=== PATIENT | female | born 1980 | race Caucasian/White ===

== ENCOUNTER 2024-11-08 15:58 | Emergency (ER) | payer OTHER, SELFPAY ==
--- OUTSIDE RECORDS SUMMARY | 2006-12-20 19:00 | XMS_ITS | Continuity of Care Document ---
Author Organization [facility] Address [address] [place] [address] Phone Care Team Providers Care Senior Radiation Therapist Name Role Phone Unavailable Unavailable Unavailable Procedures Procedure Date Resin one surface-anterior Periapical first film Periapical ea add Limit oral eval problem focused 007 Advance Directives Directive Yes / No Effective Date File Name No Information Encounters Encounter Description Practice Location Reason(s) For Visit Diagnoses Date Provider Providers Copied on Encounter [facility] , [address], [place], [place], [id number], [place] tel:[phone] [id number] [place] [facility] 200 7 No Information Family History Family Member Type Diagnosis Age At Onset No Information Payers Payer name Insurance type Covered green party ID Authoriza tion(s) No Information Social History Type Description Quantity Date Captured Comments Sex Female Smoking Status No Information Chief Complaint And Reason For Visit No Information Reason For Referral Reason For Referral No Information History Of Present Illness Encounter Date Complaint History Of Prese nt Illness No Information Functional Status Date Functional Assessmen t No Information Instructions Date Instruction Additional Infor mation No Information Assessments Type Assessment Date No Information Patient Care Teams Name Effective Dates (start - stop) Status Members No Information
[2024-11-08] VITALS (40 sets, daily range): BP systolic 62–118; BP diastolic 47–80; PULSE 65–112; RESP 17–28; TEMP 36.6–37.8; O2SAT 90–96
--- NOTE | ~2024-11-08 | CT_ITS ---
EXAMINATION: CTA chest PE abdomen pel DATE: 11/08/2024 21:46 INDICATION: Shortness of breath. TECHNIQUE: Computed tomography angiography (CTA) of the chest was performed with 100 mL Omnipaque-350 intravenous contrast timed to evaluate the pulmonary arteries. Coronal maximum intensity projection 3D-reconstructions were created by the technologist. Computed tomography (CT) of the abdomen and pelvis was performed with intravenous contrast. Automated exposure control and iterative reconstruction technique were employed. The dose-length product was 700.07 mGy-cm. COMPARISON: None. FINDINGS: CTA chest: The lungs demonstrate mild atelectasis. There is a 6.6 x 5.4 cm mass in left lung upper lobe with air bronchograms. There are small nodules in left upper lobe. No pleural effusion. Cardiomegaly is noted. No pericardial effusion. The central pulmonary arteries are enlarged, consistent with pulmonary arterial hypertension. There is no pulmonary embolus. There is mild thoracic spondylosis. CT abdomen and pelvis: The liver, gallbladder, spleen, pancreas, adrenal glands, and kidneys are normal. There is an intrauterine device in expected position. There are no dilated loops of bowel. The appendix is normal. There are no pathologically enlarged lymph nodes. There is physiologic fluid in the pelvis. There is mild lumbar spondylosis. IMPRESSION: 1. Mass and nodules in left lung upper lobe, consistent with pneumonia. Follow- up radiographs are recommended in a few weeks to confirm resolution and exclude malignancy. 2. Pulmonary arterial hypertension. Reviewed, dictated and finalized at location E.
--- NOTE | ~2024-11-08 | XR_ITS ---
Examination: XR chest 2V Clinical History: cough and congestion Comparison: None Technique: PA and Lateral Findings: Heart size normal. Enlarged pulmonary arteries. Small patchy opacity left upper lobe medially. No acute bony abnormality. IMPRESSION: 1. Small left lower lobe pneumonia. Recommend follow-up x-rays after treatment. 2. Severe pulmonary arterial hypertension. Reviewed, dictated and finalized at location R. IMPRESSION: 1. Small left lower lobe pneumonia. Recommend follow-up x-rays after treatment . 2. Severe pulmonary arterial hypertension.
--- NOTE | ~2024-11-08 | XR_ITS ---
XR chest port-a-cath/central 11/08/2024 21:25 Indication: Shortness of breath Procedure: Shortness of breath. Tachycardia. Comparison: AP portable chest Findings: Borderline heart size. Enlarged pulmonary arteries. Left subclavian central line ascends into the internal jugular vein. Recommend repositioning as clinically indicated. No focal pneumonia. No pleural effusion or pneumothorax. Impression: 1: Enlarged central pulmonary arteries consistent with pulmonary hypertension. 2: Left-sided central line tip in the internal jugular vein. Reviewed, dictated and finalized at location B. Impression: 1: Enlarged central pulmonary arteries consistent with pulmonary hypertension. 2: Left-sided central line tip in the internal jugular vein.
--- OUTSIDE RECORDS SUMMARY | 2024-11-08 16:01 | XMS_ITS | Clinical Summary ---
Author Organization [facility] Address [address] [place] [id number] Care Team Providers Care Feather Mixer Name Role Phone Unavailable Primary Care Provider Unavailabl e Social History Tobacco Use Types Packs/Day Years Used Date Smoking Tobacco: Never Assessed Comments Unknown Sex and Gender Information Value Date Recorded Sex Assigned at Not on file Legal Sex Female 6:51 PM CDT Gender Identity Not on file Sexual Orientation Not on file Plan of Treatment Health Maintenance Due Date Last Done Comments Cervical Cancer Screening Pa p Smear (Age 30 to 64) Every 3 Years 1980 Annual Physical 12/17/1983 Hepatitis C 1998 DTaP, Tdap and Td Vaccines ( 1 - Tdap) 12/17/1999 Hepatitis B Vaccines (1 of 3 - 19+ 3-dose series) 12/17/1999 HPV Vaccines (1 - 3-dose SCD M series) 12/17/2007 Cervical Cancer Screening Pa p with HPV Testing (Age 30 to 64) Every 5 Years 2010 Cervical Cancer Screening with HPV 2010 Mammogram Screening 2020 COVID-19 Vaccine ( - 2023-2 5 season) 2024 Meningococcal B Vaccine Aged Out No l onger eligible based on patient's age to complete this topic Meningococcal Vaccine Aged Out No torsten fredy eligible based on patient's age to complete this topic Pneumococcal Vaccine: Pediat rics (0 to 5 Years) and At-Risk Patients (6 to 49 Years) Aged Out No longer eligible b ased on patient's age to complete this topic RSV Immunizations Under 20 Months Aged Out No longer eligible based on patient's age to complete this topic
--- NOTE | 2024-11-08 17:33 | PC.NURSE ---
Pt states she has a rug scratcher at [facility] for pulmonary hypertension, and ASD.
--- NOTE | 2024-11-08 17:58 | ECG_ITS ---
Test Date: 2024-11-08 18:24:27 Measurements Intervals [place] Rate: 97 P: 34 NH: 128 QRS: 115 QRSD: 109 T: 55 QT: 438 QTc: 558 Interpretive Statements SINUS RHYTHM RIGHT AXIS DEVIATION INCOMPLETE RIGHT BUNDLE BRANCH BLOCK CANNOT R/O SEPTAL INFARCT, AGE INDETERMINATE ST-T WAVE ABNORMALITY IN ANTEROLAT/INF LEADS- CONSIDER ISCHEMIA ABNORMAL ECG No previous ECG available for comparison Electronically Signed On 11-08-2024 19:28:48 CDT by Camilo Heath D.O.
--- NOTE | 2024-11-08 17:59 | ED_ITS ---
HPI - General Adult General Chief complaint: Unspecified <Jovana Corrales APRN - Last Filed: 11/09/24 03:36> Stated complaint: Fever <Jovana Corrales APRN - Last Filed: 11/09/24 03:36> Time Seen by Provider: 11/08/24 17:28 <Jovana Corrales APRN - Last Filed: 11/09/24 03:36> History of Present Illness HPI narrative: Patient is a 43-year-old female presents to the ER wounds a fever for 3 days. She endorses a T-max of 103?. Patient reports she has had diarrhea, nausea, chest pain, back pain, cough, and congestion. She also endorses history of pulmonary hypertension and an ASD. Patient reports she recently had an echocardiogram the indicates she has fluid in her heart. She reports she was given prescription for Lasix but has not started taking it. Patient denies any urinary symptoms, abdominal pain, or lower extremity swelling. <Jovana Corrales APRN - Last Filed: 11/09/24 03:36> Related Data Allergies/adverse reactions: Allergies Allergy/AdvReac Type Severity Reaction Status Date / Time linezolid (From Zyvox) Allergy Mild Rash Verified 11/09/24 08:03 ciprofloxacin (From Cipro) Allergy Rash Verified 11/08/24 16:12 <Jovana Corrales APRN - Last Filed: 11/09/24 03:36> Review of Systems 2 Review of Systems: All systems reviewed & are unremarkable except as noted in HPI and below <Jovana Corrales APRN - Last Filed: 11/09/24 03:36> Exam 2 Narrative: GENERAL: Ill appearing, well-nourished, non-toxic, in mild acute distress. HEAD: Normocephalic, atraumatic. NECK: Supple. No adenopathy, no masses. RESPIRATORY: Airway patent, respirations nonlabored. Clear to auscultation bilaterally, no rales, rhonchi, wheezing. CARDIOVASCULAR: Tachycardia with murmur. Peripheral pulses 2+ and equal bilaterally. ABDOMINAL: Soft, nontender, nondistended, no hepatosplenomegaly. Normoactive BS. MUSCULOSKELETAL: Moves all extremities. Strength/ROM intact without gross deformities. SKIN: Warm, dry, normal color. No rashes. NEURO: A&O X3. Speech clear. Cranial nerves II-XII intact. No ataxic movements. PSYCHIATRIC: Appropriate mood and affect. Normal interaction. <Jovana Corrales APRN - Last Filed: 11/09/24 03:36> Course Course Emergency Course: Spoke with Dr. Lilibeth Montoya at [facility] for an update at 7:49am. Discussed patient's presentation, work up, and current needs in terms of oxygenation and pressors. He Accepts admission to the CCU (rather than the initial MICU designation) and will consult the necessary teams. Patient is still pending a bed but there is optimistically more availability with this designation. Paperwork updated to reflect this change and RN notified. I was informed that patient received a bed and EMS transportation was being arranged. She has otherwise been hemodynamically stable though remains in serious condition. <Melisa Bess MD - Last Filed: 11/09/24 18:15> CREDIT REPRESENTATIVE/PA Physician Supervision When patient had become hypotensive and hypoxic, I started to discuss patient with LINCOLN Corrales. Went to bedside to assess patient. She reports that she has had fevers for 3 days and feel short of breath. Her diagnosis of pulmonary hypertension occurred approximately 10 years ago, believed to be idiopathic has no other etiology has been identified. Has been on tildenafil for years; recent Echo for which she was advised a few days ago to start Lasix (unknown dose/frequency) but was unable to as she was not feeling well. Unable to pull up echo on her [facility] patient portal due to WiFi issues. Patient is receiving 2nd L of fluids. Using POCUS (point of care ultrasound ) at bedside along with Dr Rodriguez, her RV is very enlarged, D sign with bowing into LV is prominent. IVC is appropriate size and shows respiratory variation. She has been uptitrated from NC to NRB, sats are hovering around 90%+, occcasionally dipping below this but not sustained. I did advise blood cultures and broadening antibiotics from ceftriaxone and azithromycin to include vancomycin given how serious her condition is. Peripheral vasopressors are initiated in the form of norepi. Central line placed by Dr Rodriguez (see procedure note). Discussed the various strategies and considerations of pulmonary hypertension and critical care management of PHTN patients with CREDIT REPRESENTATIVE who also discusses patient independently with [place] [facility] health consultant and [facility] [place] hospitalist, the latter waiting until CT completed. CREDIT REPRESENTATIVE discussed patient with behavioral medical director Dr Gonzalez who recommended she be transferred to [facility] rural health consultant and specialized care there. Patient accepted to MICU after CREDIT REPRESENTATIVE conversation. Discussed with RT switching to vapotherm/aerovent/etc though there was miscommunication and that change was not made for several hours after discussion. Patient had been maintaining saturations despite this on NRB. Patient had been uptitrated from 5 to 10 to 15 of norepi. I did advise at about 6:45am that could try to downtitrate norepi given multiple reassuring MAPs howevr when back down to 10 her MAPs are not sustained >65mmHg so uptitrated back to 12. ==== Critical Care: 1 or more vital organ systems impaired with a high probability of imminent or life-threatening deterioration in the patient's condition requiring frequent personal assessment and manipulation of the patient's condition. This included time spent evaluating the patient, speaking with EMS pre-hospital personnel and family, reviewing/interpreting laboratory/imaging studies, discussing the case with consultants or admitting teams, retrieving data and reviewing charts, monitoring for decompensation, documenting the visit, and performing bundled procedures exclusive of separately billed procedures. CRITICAL CARE: YES TIME: 45 minutes <Melisa Bess MD - Last Filed: 11/09/24 18:15> Vital Signs Vital signs: Vital Signs Temperature 100.1 F H 11/08/24 16:08 Pulse Rate 112 H 11/08/24 16:08 Respiratory Rate 18 11/08/24 16:08 Blood Pressure 118/74 11/08/24 16:08 Pulse Oximetry 92 11/08/24 16:08 Temperature 97.8 F 11/08/24 19:17 Pulse Rate 60 11/09/24 10:31 Respiratory Rate 20 11/09/24 10:31 Blood Pressure 103/62 11/09/24 10:31 Pulse Oximetry 96 11/09/24 10:31 Oxygen Delivery Nasal Cannula 11/09/24 05:40 Oxygen Flow Rate 3 11/09/24 05:40 <Jovana Corrales APRN - Last Filed: 11/09/24 03:36> Vital Signs Temperature 100.1 F H 11/08/24 16:08 Pulse Rate 112 H 11/08/24 16:08 Respiratory Rate 18 11/08/24 16:08 Blood Pressure 118/74 11/08/24 16:08 Pulse Oximetry 92 11/08/24 16:08 Temperature 97.8 F 11/08/24 19:17 Pulse Rate 60 11/09/24 10:31 Respiratory Rate 20 11/09/24 10:31 Blood Pressure 103/62 11/09/24 10:31 Pulse Oximetry 96 11/09/24 10:31 Oxygen Delivery Nasal Cannula 11/09/24 05:40 Oxygen Flow Rate 3 11/09/24 05:40 <Joseph Rodriguez MD - Last Filed: 11/08/24 21:20> Vital Signs Temperature 100.1 F H 11/08/24 16:08 Pulse Rate 112 H 11/08/24 16:08 Respiratory Rate 18 11/08/24 16:08 Blood Pressure 118/74 11/08/24 16:08 Pulse Oximetry 92 11/08/24 16:08 Temperature 97.8 F 11/08/24 19:17 Pulse Rate 60 11/09/24 10:31 Respiratory Rate 20 11/09/24 10:31 Blood Pressure 103/62 11/09/24 10:31 Pulse Oximetry 96 11/09/24 10:31 Oxygen Delivery Nasal Cannula 11/09/24 05:40 Oxygen Flow Rate 3 11/09/24 05:40 <Melisa Bess MD - Last Filed: 11/09/24 18:15> Procedures Central Line Placement Left SC: Central Line Date: 11/08/24 <Joseph Rodriguez MD - Last Filed: 11/08/24 21:20> Discussed w/ the patient/family/POA,the placement of a central venous catheter, including its clinical necessity/indication & associated potential risks, benifits and alternatives.: Yes <Joseph Rodriguez MD - Last Filed: 11/08/24 21:20> The patient/family/POA understand(s) and acknowledge(s) the need to proceed with central venous catheter insertion as an important element of the patient's clinical management.: Yes <Joseph Rodriguez MD - Last Filed: 11/08/24 21:20> Time Out Performed: Yes <Joseph Rodriguez MD - Last Filed: 11/08/24 21:20> Patient Placed on Monitor/Pulse Ox: Yes <Joseph Rodriguez MD - Last Filed: 11/08/24 21:20> Max. Sterile Barrier Technique: Caps and large sterile sheet <Joseph Rodriguez MD - Last Filed: 11/08/24 21:20> Central Line Prep: 2% chlorhexidine scrub and sterile drapes applied <Joseph Rodriguez MD - Last Filed: 11/08/24 21:20> Technique: sterile prep/drape <Joseph Rodriguez MD - Last Filed: 11/08/24 21:20> Local Anesthetic: lidocaine 1% and lidocaine 2% <Joseph Rodriguez MD - Last Filed: 11/08/24 21:20> Amount of anesthesia used (mL): 5 <Joseph Rodriguez MD - Last Filed: 11/08/24 21:20> Ultrasound Used for Placement: No <Joseph Rodriguez MD - Last Filed: 11/08/24 21:20> Central Line Lumen Inserted: triple <Joseph Rodriguez MD - Last Filed: 11/08/24 21:20> Post Procedure: sutured in place, good blood return, all ports aspirated, flushed, capped and sterile dressing applied <Joseph Rodriguez MD - Last Filed: 11/08/24 21:20> Post Procedure X-Ray: other (Catheter doubled back on itself. Suspect this is due to previous port placement in the right chest. Catheter was removed pressure was held for 5 minutes. No significant bleeding.) <Joseph Rodriguez MD - Last Filed: 11/08/24 21:20> Patient Tolerated Procedure: other <Joseph Rodriguez MD - Last Filed: 11/08/24 21:20> Complications: catheter malposition <Joseph Rodriguez MD - Last Filed: 11/08/24 21:20> Right Femoral: Central Line Date: 11/08/24 <Joseph Rodriguez MD - Last Filed: 11/08/24 21:20> Discussed w/ the patient/family/POA,the placement of a central venous catheter, including its clinical necessity/indication & associated potential risks, benifits and alternatives.: Yes <Joseph Rodriguez MD - Last Filed: 11/08/24 21:20> The patient/family/POA understand(s) and acknowledge(s) the need to proceed with central venous catheter insertion as an important element of the patient's clinical management.: Yes <Joseph Rodriguez MD - Last Filed: 11/08/24 21:20> Time Out Performed: Yes <Joseph Rodriguez MD - Last Filed: 11/08/24 21:20> Patient Placed on Monitor/Pulse Ox: Yes <Joseph Rodriguez MD - Last Filed: 11/08/24 21:20> Max. Sterile Barrier Technique: Caps, large sterile sheet and hand hygiene <Joseph Rodriguez MD - Last Filed: 11/08/24 21:20> Central Line Prep: 2% chlorhexidine scrub and sterile drapes applied <Joseph Rodriguez MD - Last Filed: 11/08/24 21:20> Technique: US-Guided <Joseph Rodriguez MD - Last Filed: 11/08/24 21:20> Local Anesthetic: lidocaine 1% <Joseph Rodriguez MD - Last Filed: 11/08/24 21:20> Amount of anesthesia used (mL): 5 <Joseph Rodriguez MD - Last Filed: 11/08/24 21:20> Ultrasound Used for Placement: Yes <Joseph Rodriguez MD - Last Filed: 11/08/24 21:20> Central Line Lumen Inserted: triple <Joseph Rodriguez MD - Last Filed: 11/08/24 21:20> Post Procedure: sutured in place, good blood return, all ports aspirated, flushed, capped and sterile dressing applied <Joseph Rodriguez MD - Last Filed: 11/08/24 21:20> Patient Tolerated Procedure: well <Joseph Rodriguez MD - Last Filed: 11/08/24 21:20> Complications: none <Joseph Rodriguez MD - Last Filed: 11/08/24 21:20> Medical Decision Making [facility] Narrative Medical decision making narrative: Patient is a 43-year-old female presents to the ER wounds a fever for 3 days. She endorses a T-max of 103?. Patient reports she has had diarrhea, nausea, chest pain, back pain, cough, and congestion. She also endorses history of pulmonary hypertension and an ASD. Patient reports she recently had an echocardiogram the indicates she has fluid in her heart. She reports she was given prescription for Lasix but has not started taking it. Patient denies any urinary symptoms, abdominal pain, or lower extremity swelling. Labs Ordered: CBC, CMP, proBNP, lactic acid, CRP, blood cultures, troponin, UA, D-dimer, PTT, INR, lipase Imaging Ordered: chest x-ray, CT PE chest/abdomen/pelvis Medications Ordered: 1 L normal saline IV bolus x2, ceftriaxone 1 g IV, azithromycin 500 mg IV, vancomycin 1750 mg IV, potassium chloride IV, Reglan 10 mg IV, Tylenol p.o., Zofran 4 mg IV Results: Patient's CBC indicates a white blood cell count of 19.7, platelet count of 111. Her coags indicate a PT of 16.8, APTT of 37 seconds, and INR of 1.4. Patient's D-dimer was 1.84. Her arterial blood gas indicates an ABG of 7.311, CO2 28.4, O2 of 65, HC03 of 14. Patient's chemistry indicates a sodium of 130, potassium of 3.1, carbon dioxide of 14, BUN of 20, creatinine of 1.06, GFR of 57, glucose 132, and total bili of 1.9. Patient's CRP is 30.7. Her proBNP is 3170. Patient's initial troponin was 0.017, and her 3 hour troponin was 0.013. Her urinalysis indicates 3+ protein, trace glucose, trace ketones, 3+ blood, and 1+ bilirubin. Patient's nasal MRSA was not detected. Her toxicology was negative for all substances. Patient's respiratory panel is negative for influenza, RSV, and COVID. Pt's chest x-ray indicates 1. Small left lower lobe pneumonia. Recommend follow-up x-rays after treatment. 2. Severe pulmonary arterial hypertension. Diagnosis: Pneumonia, pulmonary hypertension CRITICAL CARE ADDENDUM: Indication: resp failure, pulmonary hypertension, pneumonia Time type: intermittent I provided a total of 75 minutes of critical care excluding separately billable procedures. This includes time w/ initial bedside evaluation, reviewing old records, review of testing done while under my care, discussion w/ the family, nurses, wardrobe image consultant and guiding the patient?s care while in the emergency department. Approximate time distribution: 10 minutes ? Initial evaluation, d/w involved parties, attempting to gather old records. 10 minutes ? Documenting medical record 20 minutes ? Review of results (EKGs, labs, imaging) 20 minutes ? Serial repeat bedside evaluation 15 minutes ? Discussing case with multiple providers Please see main chart for details. Excludes separately billable procedures. Consults: 2044- Spoke with Dr. Oconnell, pulmonology, who advised to treat this as septic shock from pt's pneumonia. He reports he doesn't use Tadalafil (pt's home medication), so he had no further advice on her pulmonary medications. MDM: 1944- Pt placed on 2L NC to keep oxygen saturation above 92%. 1999- Pt's blood pressure started to drop (70s/40s). Her oxygen saturations dropped into the high 80s and pt's NC was turned up to 4L NC. Eventually, pt was placed on a non-rebreather with 15L. The ER physician placed a central line and a norepinephrine was started. The norepinephrine drip was turned up to 10mcg/minute to keep her blood pressure in the 100s/60s. 2199- Spoke with Dr. Gonzalez, behavioral medical director, who reports pt should be transferred to the facility where her rural health consultant is located. 2229- Spoke with transfer line who will work on coordinating pt's transfer. 2329- Pt was accepted in the MICU at [facility]. The accepting physician is Dr. Peres. 2399- Spoke with MICU fellow, Dr. Platt, who advised adding epinephrine onto pt's regime if she becomes hemodynamically unstable. He also advised placing pt on an Optiflow if she starts requiring more oxygen. 329- Care signed out to Dr. Bess pending an available bed in the MICU at [facility]. <Jovana Corrales, AZAEL - Last Filed: 11/09/24 03:36> Differential Diagnosis Differential Diagnosis: Community acquired pneumonia, pulmonary hypertension, pulmonary embolism, congestive heart failure <Jovana Corrales APRN - Last Filed: 11/09/24 03:36> Vital Signs Vital Signs: Vital Signs Temperature 100.1 F H 11/08/24 16:08 Pulse Rate 112 H 11/08/24 16:08 Respiratory Rate 18 11/08/24 16:08 Blood Pressure 118/74 11/08/24 16:08 Pulse Oximetry 92 11/08/24 16:08 Temperature 97.8 F 11/08/24 19:17 Pulse Rate 60 11/09/24 10:31 Respiratory Rate 20 11/09/24 10:31 Blood Pressure 103/62 11/09/24 10:31 Pulse Oximetry 96 11/09/24 10:31 Oxygen Delivery Nasal Cannula 11/09/24 05:40 Oxygen Flow Rate 3 11/09/24 05:40 <Jovana Corrales, [employer] SUPERVISOR - Last Filed: 11/09/24 03:36> Vital Signs Temperature 100.1 F H 11/08/24 16:08 Pulse Rate 112 H 11/08/24 16:08 Respiratory Rate 18 11/08/24 16:08 Blood Pressure 118/74 11/08/24 16:08 Pulse Oximetry 92 11/08/24 16:08 Temperature 97.8 F 11/08/24 19:17 Pulse Rate 60 11/09/24 10:31 Respiratory Rate 20 11/09/24 10:31 Blood Pressure 103/62 11/09/24 10:31 Pulse Oximetry 96 11/09/24 10:31 Oxygen Delivery Nasal Cannula 11/09/24 05:40 Oxygen Flow Rate 3 11/09/24 05:40 <Joseph Rodriguez MD - Last Filed: 11/08/24 21:20> Vital Signs Temperature 100.1 F H 11/08/24 16:08 Pulse Rate 112 H 11/08/24 16:08 Respiratory Rate 18 11/08/24 16:08 Blood Pressure 118/74 11/08/24 16:08 Pulse Oximetry 92 11/08/24 16:08 Temperature 97.8 F 11/08/24 19:17 Pulse Rate 60 11/09/24 10:31 Respiratory Rate 20 11/09/24 10:31 Blood Pressure 103/62 11/09/24 10:31 Pulse Oximetry 96 11/09/24 10:31 Oxygen Delivery Nasal Cannula 11/09/24 05:40 Oxygen Flow Rate 3 11/09/24 05:40 <Melisa Bess MD - Last Filed: 11/09/24 18:15> Lab Data Lab results reviewed: Yes I reviewed the patient's lab results. <Jovana Corrales APRN - Last Filed: 11/09/24 03:36> Result diagrams: 11/08/24 18:37 11/09/24 06:16 <Jovana Corrales APRN - Last Filed: 11/09/24 03:36> Labs: Lab Results 11/08/24 11/08/24 11/08/24 Range/Units 18:37 19:09 19:47 WBC 19.7 H (4.5-10.0) K/mm3 RBC 4.70 (4.2-5.4) M/mm3 Hgb 14.5 (12.0-15.0) g/dL Hct 40.9 (37.0-47.0) % MCV 87.0 (80-100) fl MCH 30.9 (26-34) pg MCHC 35.5 (32-36) g/dl RDW 12.9 (11.5-14.5) % Plt Count 111 L (150-375) k/mm3 MPV 9.2 (7.4-10.4) fl Immature Gran % (Auto) 0.7 H (0-0.5) % Neut % (Auto) 88.3 H (45.5-73.1) % Lymph % (Auto) 4.0 L (18.3-44.2) % Caroline % (Auto) 6.7 (2.6-8.5) % Eos % (Auto) 0.1 (0-4.4) % Baso % (Auto) 0.2 (0.2-1.2) % Lymph # (Auto) 0.78 L (0.9-3.2) K/mm3 Caroline # (Auto) 1.3 H (0.1-0.6) K/mm3 Eos # (Auto) 0.0 (0-0.3) K/mm3 Baso # (Auto) 0.0 (0.0-0.1) K/mm3 Abs Immat Gran (auto) 0.13 H (0.00-0.031) K/mm3 Absolute Neuts (auto) 17.4 H (1.3-6.7) K/mm3 Absolute Nucleated RBC 0.000 (0.0-0.012) K/mm3 Nucleated RBC % 0.0 (0.0-0.2) % PT 16.8 H (11.1-14.7) Seconds INR 1.4 APTT 37.0 H (22.3-36.8) Seconds D-Dimer 1.84 H (<0.48) ug/mL Sodium 130 L (137-145) mmol/L Potassium 3.1 L (3.4-5.0) mmol/L Chloride 107 (98-107) mmol/L Carbon Dioxide 14 L (22-30) mmol/L Anion Gap 9 (4-12) mmol/L BUN 20 H (7-17) mg/dL Creatinine 1.06 H (0.7-1.0) mg/dL Estim Creat Clear Calc 59 ml/min Estimated GFR 57 L (59 - ) Glucose 132 H (65-110) mg/dL Lactic Acid 1.3 (0.7-2.0) mmol/L Calcium 8.5 (8.4-10.2) mg/dL Total Bilirubin 1.9 H (0.2-1.3) mg/dL AST 16 (14-36) U/L ALT 14 (6-35) U/L Alkaline Phosphatase 73 (38-126) U/L Troponin I 0.017 (0.000-0.034) ng/mL C-Reactive Protein 30.7 H (<1.0) mg/dL NT-Pro-B Natriuret Pep 3170 H (19.9-100) pg/mL Total Protein 7.3 (6.3-8.2) g/dL Albumin 3.8 (3.5-5.1) g/dL Lipase 152 (23-300) U/L Urine Color Dark yellow (Yellow) Urine Appearance Cloudy H (Clear) Urine pH 5.5 (5.0-9.0) Ur Specific [place] 1.027 (1.001-1.035) Urine Protein 3+ H (Negative) mg/dL Urine Glucose (UA) Trace H (Negative) mg/dL Urine Ketones Trace H (Negative) mg/dL Ur Blood (Man) 3+ H (Negative) Urine Nitrate Negative (Negative) Urine Bilirubin 1+ H (Negative) Urine Urobilinogen 1.0 (<2.0) mg/dL Add Ur Microanalysis Reviewed Leukocyte Esterase Rfl Negative (Negative) AGUSTIN/UL Urine RBC 6-10 H (0-2) /hpf Urine WBC 0-5 (0-3) /hpf Ur Squamous Epith Cells Moderate (Few) /hpf Urine Bacteria 1+ H /hpf Urine Casts >20 Granular Casts Present (None) /lpf WBC Casts Present H (None) /lpf Urine Mucus Present /lpf POC Urine HCG, Qual Negative (Negative) Nasal MRSA (PCR) (NOT DETECTE) Urine Opiates Screen Negative (Negative) Urine Methadone Screen Negative (Negative) Ur Barbiturates Screen Negative (Negative) Ur Phencyclidine Scrn Negative (Negative) Ur Amphetamine Screen Negative (Negative) U Benzodiazepines Scrn Negative (Negative) Urine Cocaine Screen Negative (Negative) U Cannabinoids Screen Negative (Negative) Influenza A (RT-PCR) Negative (Negative) Influenza B (RT-PCR) Negative (Negative) RSV (RT-PCR) Negative (Negative) SARS-CoV-2 RNA (RT-PCR) Negative (Negative) 11/08/24 11/08/24 11/08/24 Range/Units 20:41 22:42 22:50 WBC (4.5-10.0) K/mm3 RBC (4.2-5.4) M/mm3 Hgb (12.0-15.0) g/dL Hct (37.0-47.0) % MCV (80-100) fl MCH (26-34) pg MCHC (32-36) g/dl RDW (11.5-14.5) % Plt Count (150-375) k/mm3 MPV (7.4-10.4) fl Immature Gran % (Auto) (0-0.5) % Neut % (Auto) (45.5-73.1) % Lymph % (Auto) (18.3-44.2) % Caroline % (Auto) (2.6-8.5) % Eos % (Auto) (0-4.4) % Baso % (Auto) (0.2-1.2) % Lymph # (Auto) (0.9-3.2) K/mm3 Caroline # (Auto) (0.1-0.6) K/mm3 Eos # (Auto) (0-0.3) K/mm3 Baso # (Auto) (0.0-0.1) K/mm3 Abs Immat Gran (auto) (0.00-0.031) K/mm3 Absolute Neuts (auto) (1.3-6.7) K/mm3 Absolute Nucleated RBC (0.0-0.012) K/mm3 Nucleated RBC % (0.0-0.2) % PT (11.1-14.7) Seconds INR APTT (22.3-36.8) Seconds D-Dimer (<0.48) ug/mL Sodium (137-145) mmol/L Potassium (3.4-5.0) mmol/L Chloride (98-107) mmol/L Carbon Dioxide (22-30) mmol/L Anion Gap (4-12) mmol/L BUN (7-17) mg/dL Creatinine (0.7-1.0) mg/dL Estim Creat Clear Calc ml/min Estimated GFR (59 - ) Glucose (65-110) mg/dL Lactic Acid (0.7-2.0) mmol/L Calcium (8.4-10.2) mg/dL Total Bilirubin (0.2-1.3) mg/dL AST (14-36) U/L ALT (6-35) U/L Alkaline Phosphatase (38-126) U/L Troponin I 0.014 0.013 (0.000-0.034) ng/mL C-Reactive Protein (<1.0) mg/dL NT-Pro-B Natriuret Pep (19.9-100) pg/mL Total Protein (6.3-8.2) g/dL Albumin (3.5-5.1) g/dL Lipase (23-300) U/L Urine Color (Yellow) Urine Appearance (Clear) Urine pH (5.0-9.0) Ur Specific [place] (1.001-1.035) Urine Protein (Negative) mg/dL Urine Glucose (UA) (Negative) mg/dL Urine Ketones (Negative) mg/dL Ur Blood (Man) (Negative) Urine Nitrate (Negative) Urine Bilirubin (Negative) Urine Urobilinogen (<2.0) mg/dL Add Ur Microanalysis Leukocyte Esterase Rfl (Negative) AGUSTIN/UL Urine RBC (0-2) /hpf Urine WBC (0-3) /hpf Ur Squamous Epith Cells (Few) /hpf Urine Bacteria /hpf Urine Casts Granular Casts (None) /lpf WBC Casts (None) /lpf Urine Mucus /lpf POC Urine HCG, Qual (Negative) Nasal MRSA (PCR) Not detected (NOT DETECTE) Urine Opiates Screen (Negative) Urine Methadone Screen (Negative) Ur Barbiturates Screen (Negative) Ur Phencyclidine Scrn (Negative) Ur Amphetamine Screen (Negative) U Benzodiazepines Scrn (Negative) Urine Cocaine Screen (Negative) U Cannabinoids Screen (Negative) Influenza A (RT-PCR) (Negative) Influenza B (RT-PCR) (Negative) RSV (RT-PCR) (Negative) SARS-CoV-2 RNA (RT-PCR) (Negative) 11/09/24 Range/Units 06:16 WBC (4.5-10.0) K/mm3 RBC (4.2-5.4) M/mm3 Hgb (12.0-15.0) g/dL Hct (37.0-47.0) % MCV (80-100) fl MCH (26-34) pg MCHC (32-36) g/dl RDW (11.5-14.5) % Plt Count (150-375) k/mm3 MPV (7.4-10.4) fl Immature Gran % (Auto) (0-0.5) % Neut % (Auto) (45.5-73.1) % Lymph % (Auto) (18.3-44.2) % Caroline % (Auto) (2.6-8.5) % Eos % (Auto) (0-4.4) % Baso % (Auto) (0.2-1.2) % Lymph # (Auto) (0.9-3.2) K/mm3 Caroline # (Auto) (0.1-0.6) K/mm3 Eos # (Auto) (0-0.3) K/mm3 Baso # (Auto) (0.0-0.1) K/mm3 Abs Immat Gran (auto) (0.00-0.031) K/mm3 Absolute Neuts (auto) (1.3-6.7) K/mm3 Absolute Nucleated RBC (0.0-0.012) K/mm3 Nucleated RBC % (0.0-0.2) % PT (11.1-14.7) Seconds INR APTT (22.3-36.8) Seconds D-Dimer (<0.48) ug/mL Sodium (137-145) mmol/L Potassium (3.4-5.0) mmol/L Chloride (98-107) mmol/L Carbon Dioxide (22-30) mmol/L Anion Gap (4-12) mmol/L BUN (7-17) mg/dL Creatinine 0.94 (0.7-1.0) mg/dL Estim Creat Clear Calc 66 ml/min Estimated GFR > 60 (59 - ) Glucose (65-110) mg/dL Lactic Acid (0.7-2.0) mmol/L Calcium (8.4-10.2) mg/dL Total Bilirubin (0.2-1.3) mg/dL AST (14-36) U/L ALT (6-35) U/L Alkaline Phosphatase (38-126) U/L Troponin I (0.000-0.034) ng/mL C-Reactive Protein (<1.0) mg/dL NT-Pro-B Natriuret Pep (19.9-100) pg/mL Total Protein (6.3-8.2) g/dL Albumin (3.5-5.1) g/dL Lipase (23-300) U/L Urine Color (Yellow) Urine Appearance (Clear) Urine pH (5.0-9.0) Ur Specific [place] (1.001-1.035) Urine Protein (Negative) mg/dL Urine Glucose (UA) (Negative) mg/dL Urine Ketones (Negative) mg/dL Ur Blood (Man) (Negative) Urine Nitrate (Negative) Urine Bilirubin (Negative) Urine Urobilinogen (<2.0) mg/dL Add Ur Microanalysis Leukocyte Esterase Rfl (Negative) AGUSTIN/UL Urine RBC (0-2) /hpf Urine WBC (0-3) /hpf Ur Squamous Epith Cells (Few) /hpf Urine Bacteria /hpf Urine Casts Granular Casts (None) /lpf WBC Casts (None) /lpf Urine Mucus /lpf POC Urine HCG, Qual (Negative) Nasal MRSA (PCR) (NOT DETECTE) Urine Opiates Screen (Negative) Urine Methadone Screen (Negative) Ur Barbiturates Screen (Negative) Ur Phencyclidine Scrn (Negative) Ur Amphetamine Screen (Negative) U Benzodiazepines Scrn (Negative) Urine Cocaine Screen (Negative) U Cannabinoids Screen (Negative) Influenza A (RT-PCR) (Negative) Influenza B (RT-PCR) (Negative) RSV (RT-PCR) (Negative) SARS-CoV-2 RNA (RT-PCR) (Negative) <Jovana Chele Corrales, [employer] - Last Filed: 11/09/24 03:36> Lab Results 11/08/24 11/08/24 11/08/24 Range/Units 18:37 19:09 19:47 WBC 19.7 H (4.5-10.0) K/mm3 RBC 4.70 (4.2-5.4) M/mm3 Hgb 14.5 (12.0-15.0) g/dL Hct 40.9 (37.0-47.0) % MCV 87.0 (80-100) fl MCH 30.9 (26-34) pg MCHC 35.5 (32-36) g/dl RDW 12.9 (11.5-14.5) % Plt Count 111 L (150-375) k/mm3 MPV 9.2 (7.4-10.4) fl Immature Gran % (Auto) 0.7 H (0-0.5) % Neut % (Auto) 88.3 H (45.5-73.1) % Lymph % (Auto) 4.0 L (18.3-44.2) % Caroline % (Auto) 6.7 (2.6-8.5) % Eos % (Auto) 0.1 (0-4.4) % Baso % (Auto) 0.2 (0.2-1.2) % Lymph # (Auto) 0.78 L (0.9-3.2) K/mm3 Caroline # (Auto) 1.3 H (0.1-0.6) K/mm3 Eos # (Auto) 0.0 (0-0.3) K/mm3 Baso # (Auto) 0.0 (0.0-0.1) K/mm3 Abs Immat Gran (auto) 0.13 H (0.00-0.031) K/mm3 Absolute Neuts (auto) 17.4 H (1.3-6.7) K/mm3 Absolute Nucleated RBC 0.000 (0.0-0.012) K/mm3 Nucleated RBC % 0.0 (0.0-0.2) % PT 16.8 H (11.1-14.7) Seconds INR 1.4 APTT 37.0 H (22.3-36.8) Seconds D-Dimer 1.84 H (<0.48) ug/mL Sodium 130 L (137-145) mmol/L Potassium 3.1 L (3.4-5.0) mmol/L Chloride 107 (98-107) mmol/L Carbon Dioxide 14 L (22-30) mmol/L Anion Gap 9 (4-12) mmol/L BUN 20 H (7-17) mg/dL Creatinine 1.06 H (0.7-1.0) mg/dL Estim Creat Clear Calc 59 ml/min Estimated GFR 57 L (59 - ) Glucose 132 H (65-110) mg/dL Lactic Acid 1.3 (0.7-2.0) mmol/L Calcium 8.5 (8.4-10.2) mg/dL Total Bilirubin 1.9 H (0.2-1.3) mg/dL AST 16 (14-36) U/L ALT 14 (6-35) U/L Alkaline Phosphatase 73 (38-126) U/L Troponin I 0.017 (0.000-0.034) ng/mL C-Reactive Protein 30.7 H (<1.0) mg/dL NT-Pro-B Natriuret Pep 3170 H (19.9-100) pg/mL Total Protein 7.3 (6.3-8.2) g/dL Albumin 3.8 (3.5-5.1) g/dL Lipase 152 (23-300) U/L Urine Color Dark yellow (Yellow) Urine Appearance Cloudy H (Clear) Urine pH 5.5 (5.0-9.0) Ur Specific [place] 1.027 (1.001-1.035) Urine Protein 3+ H (Negative) mg/dL Urine Glucose (UA) Trace H (Negative) mg/dL Urine Ketones Trace H (Negative) mg/dL Ur Blood (Man) 3+ H (Negative) Urine Nitrate Negative (Negative) Urine Bilirubin 1+ H (Negative) Urine Urobilinogen 1.0 (<2.0) mg/dL Add Ur Microanalysis Reviewed Leukocyte Esterase Rfl Negative (Negative) AGUSTIN/UL Urine RBC 6-10 H (0-2) /hpf Urine WBC 0-5 (0-3) /hpf Ur Squamous Epith Cells Moderate (Few) /hpf Urine Bacteria 1+ H /hpf Urine Casts >20 Granular Casts Present (None) /lpf WBC Casts Present H (None) /lpf Urine Mucus Present /lpf POC Urine HCG, Qual Negative (Negative) Nasal MRSA (PCR) (NOT DETECTE) Urine Opiates Screen Negative (Negative) Urine Methadone Screen Negative (Negative) Ur Barbiturates Screen Negative (Negative) Ur Phencyclidine Scrn Negative (Negative) Ur Amphetamine Screen Negative (Negative) U Benzodiazepines Scrn Negative (Negative) Urine Cocaine Screen Negative (Negative) U Cannabinoids Screen Negative (Negative) Influenza A (RT-PCR) Negative (Negative) Influenza B (RT-PCR) Negative (Negative) RSV (RT-PCR) Negative (Negative) SARS-CoV-2 RNA (RT-PCR) Negative (Negative) 11/08/24 11/08/24 11/08/24 Range/Units 20:41 22:42 22:50 WBC (4.5-10.0) K/mm3 RBC (4.2-5.4) M/mm3 Hgb (12.0-15.0) g/dL Hct (37.0-47.0) % MCV (80-100) fl MCH (26-34) pg MCHC (32-36) g/dl RDW (11.5-14.5) % Plt Count (150-375) k/mm3 MPV (7.4-10.4) fl Immature Gran % (Auto) (0-0.5) % Neut % (Auto) (45.5-73.1) % Lymph % (Auto) (18.3-44.2) % Caroline % (Auto) (2.6-8.5) % Eos % (Auto) (0-4.4) % Baso % (Auto) (0.2-1.2) % Lymph # (Auto) (0.9-3.2) K/mm3 Caroline # (Auto) (0.1-0.6) K/mm3 Eos # (Auto) (0-0.3) K/mm3 Baso # (Auto) (0.0-0.1) K/mm3 Abs Immat Gran (auto) (0.00-0.031) K/mm3 Absolute Neuts (auto) (1.3-6.7) K/mm3 Absolute Nucleated RBC (0.0-0.012) K/mm3 Nucleated RBC % (0.0-0.2) % PT (11.1-14.7) Seconds INR APTT (22.3-36.8) Seconds D-Dimer (<0.48) ug/mL Sodium (137-145) mmol/L Potassium (3.4-5.0) mmol/L Chloride (98-107) mmol/L Carbon Dioxide (22-30) mmol/L Anion Gap (4-12) mmol/L BUN (7-17) mg/dL Creatinine (0.7-1.0) mg/dL Estim Creat Clear Calc ml/min Estimated GFR (59 - ) Glucose (65-110) mg/dL Lactic Acid (0.7-2.0) mmol/L Calcium (8.4-10.2) mg/dL Total Bilirubin (0.2-1.3) mg/dL AST (14-36) U/L ALT (6-35) U/L Alkaline Phosphatase (38-126) U/L Troponin I 0.014 0.013 (0.000-0.034) ng/mL C-Reactive Protein (<1.0) mg/dL NT-Pro-B Natriuret Pep (19.9-100) pg/mL Total Protein (6.3-8.2) g/dL Albumin (3.5-5.1) g/dL Lipase (23-300) U/L Urine Color (Yellow) Urine Appearance (Clear) Urine pH (5.0-9.0) Ur Specific [place] (1.001-1.035) Urine Protein (Negative) mg/dL Urine Glucose (UA) (Negative) mg/dL Urine Ketones (Negative) mg/dL Ur Blood (Man) (Negative) Urine Nitrate (Negative) Urine Bilirubin (Negative) Urine Urobilinogen (<2.0) mg/dL Add Ur Microanalysis Leukocyte Esterase Rfl (Negative) AGUSTIN/UL Urine RBC (0-2) /hpf Urine WBC (0-3) /hpf Ur Squamous Epith Cells (Few) /hpf Urine Bacteria /hpf Urine Casts Granular Casts (None) /lpf WBC Casts (None) /lpf Urine Mucus /lpf POC Urine HCG, Qual (Negative) Nasal MRSA (PCR) Not detected (NOT DETECTE) Urine Opiates Screen (Negative) Urine Methadone Screen (Negative) Ur Barbiturates Screen (Negative) Ur Phencyclidine Scrn (Negative) Ur Amphetamine Screen (Negative) U Benzodiazepines Scrn (Negative) Urine Cocaine Screen (Negative) U Cannabinoids Screen (Negative) Influenza A (RT-PCR) (Negative) Influenza B (RT-PCR) (Negative) RSV (RT-PCR) (Negative) SARS-CoV-2 RNA (RT-PCR) (Negative) 11/09/24 Range/Units 06:16 WBC (4.5-10.0) K/mm3 RBC (4.2-5.4) M/mm3 Hgb (12.0-15.0) g/dL Hct (37.0-47.0) % MCV (80-100) fl MCH (26-34) pg MCHC (32-36) g/dl RDW (11.5-14.5) % Plt Count (150-375) k/mm3 MPV (7.4-10.4) fl Immature Gran % (Auto) (0-0.5) % Neut % (Auto) (45.5-73.1) % Lymph % (Auto) (18.3-44.2) % Caroline % (Auto) (2.6-8.5) % Eos % (Auto) (0-4.4) % Baso % (Auto) (0.2-1.2) % Lymph # (Auto) (0.9-3.2) K/mm3 Caroline # (Auto) (0.1-0.6) K/mm3 Eos # (Auto) (0-0.3) K/mm3 Baso # (Auto) (0.0-0.1) K/mm3 Abs Immat Gran (auto) (0.00-0.031) K/mm3 Absolute Neuts (auto) (1.3-6.7) K/mm3 Absolute Nucleated RBC (0.0-0.012) K/mm3 Nucleated RBC % (0.0-0.2) % PT (11.1-14.7) Seconds INR APTT (22.3-36.8) Seconds D-Dimer (<0.48) ug/mL Sodium (137-145) mmol/L Potassium (3.4-5.0) mmol/L Chloride (98-107) mmol/L Carbon Dioxide (22-30) mmol/L Anion Gap (4-12) mmol/L BUN (7-17) mg/dL Creatinine 0.94 (0.7-1.0) mg/dL Estim Creat Clear Calc 66 ml/min Estimated GFR > 60 (59 - ) Glucose (65-110) mg/dL Lactic Acid (0.7-2.0) mmol/L Calcium (8.4-10.2) mg/dL Total Bilirubin (0.2-1.3) mg/dL AST (14-36) U/L ALT (6-35) U/L Alkaline Phosphatase (38-126) U/L Troponin I (0.000-0.034) ng/mL C-Reactive Protein (<1.0) mg/dL NT-Pro-B Natriuret Pep (19.9-100) pg/mL Total Protein (6.3-8.2) g/dL Albumin (3.5-5.1) g/dL Lipase (23-300) U/L Urine Color (Yellow) Urine Appearance (Clear) Urine pH (5.0-9.0) Ur Specific [place] (1.001-1.035) Urine Protein (Negative) mg/dL Urine Glucose (UA) (Negative) mg/dL Urine Ketones (Negative) mg/dL Ur Blood (Man) (Negative) Urine Nitrate (Negative) Urine Bilirubin (Negative) Urine Urobilinogen (<2.0) mg/dL Add Ur Microanalysis Leukocyte Esterase Rfl (Negative) AGUSTIN/UL Urine RBC (0-2) /hpf Urine WBC (0-3) /hpf Ur Squamous Epith Cells (Few) /hpf Urine Bacteria /hpf Urine Casts Granular Casts (None) /lpf WBC Casts (None) /lpf Urine Mucus /lpf POC Urine HCG, Qual (Negative) Nasal MRSA (PCR) (NOT DETECTE) Urine Opiates Screen (Negative) Urine Methadone Screen (Negative) Ur Barbiturates Screen (Negative) Ur Phencyclidine Scrn (Negative) Ur Amphetamine Screen (Negative) U Benzodiazepines Scrn (Negative) Urine Cocaine Screen (Negative) U Cannabinoids Screen (Negative) Influenza A (RT-PCR) (Negative) Influenza B (RT-PCR) (Negative) RSV (RT-PCR) (Negative) SARS-CoV-2 RNA (RT-PCR) (Negative) <Joseph Rodriguez MD - Last Filed: 11/08/24 21:20> Lab Results 11/08/24 11/08/24 11/08/24 Range/Units 18:37 19:09 19:47 WBC 19.7 H (4.5-10.0) K/mm3 RBC 4.70 (4.2-5.4) M/mm3 Hgb 14.5 (12.0-15.0) g/dL Hct 40.9 (37.0-47.0) % MCV 87.0 (80-100) fl MCH 30.9 (26-34) pg MCHC 35.5 (32-36) g/dl RDW 12.9 (11.5-14.5) % Plt Count 111 L (150-375) k/mm3 MPV 9.2 (7.4-10.4) fl Immature Gran % (Auto) 0.7 H (0-0.5) % Neut % (Auto) 88.3 H (45.5-73.1) % Lymph % (Auto) 4.0 L (18.3-44.2) % Caroline % (Auto) 6.7 (2.6-8.5) % Eos % (Auto) 0.1 (0-4.4) % Baso % (Auto) 0.2 (0.2-1.2) % Lymph # (Auto) 0.78 L (0.9-3.2) K/mm3 Caroline # (Auto) 1.3 H (0.1-0.6) K/mm3 Eos # (Auto) 0.0 (0-0.3) K/mm3 Baso # (Auto) 0.0 (0.0-0.1) K/mm3 Abs Immat Gran (auto) 0.13 H (0.00-0.031) K/mm3 Absolute Neuts (auto) 17.4 H (1.3-6.7) K/mm3 Absolute Nucleated RBC 0.000 (0.0-0.012) K/mm3 Nucleated RBC % 0.0 (0.0-0.2) % PT 16.8 H (11.1-14.7) Seconds INR 1.4 APTT 37.0 H (22.3-36.8) Seconds D-Dimer 1.84 H (<0.48) ug/mL Sodium 130 L (137-145) mmol/L Potassium 3.1 L (3.4-5.0) mmol/L Chloride 107 (98-107) mmol/L Carbon Dioxide 14 L (22-30) mmol/L Anion Gap 9 (4-12) mmol/L BUN 20 H (7-17) mg/dL Creatinine 1.06 H (0.7-1.0) mg/dL Estim Creat Clear Calc 59 ml/min Estimated GFR 57 L (59 - ) Glucose 132 H (65-110) mg/dL Lactic Acid 1.3 (0.7-2.0) mmol/L Calcium 8.5 (8.4-10.2) mg/dL Total Bilirubin 1.9 H (0.2-1.3) mg/dL AST 16 (14-36) U/L ALT 14 (6-35) U/L Alkaline Phosphatase 73 (38-126) U/L Troponin I 0.017 (0.000-0.034) ng/mL C-Reactive Protein 30.7 H (<1.0) mg/dL NT-Pro-B Natriuret Pep 3170 H (19.9-100) pg/mL Total Protein 7.3 (6.3-8.2) g/dL Albumin 3.8 (3.5-5.1) g/dL Lipase 152 (23-300) U/L Urine Color Dark yellow (Yellow) Urine Appearance Cloudy H (Clear) Urine pH 5.5 (5.0-9.0) Ur Specific [place] 1.027 (1.001-1.035) Urine Protein 3+ H (Negative) mg/dL Urine Glucose (UA) Trace H (Negative) mg/dL Urine Ketones Trace H (Negative) mg/dL Ur Blood (Man) 3+ H (Negative) Urine Nitrate Negative (Negative) Urine Bilirubin 1+ H (Negative) Urine Urobilinogen 1.0 (<2.0) mg/dL Add Ur Microanalysis Reviewed Leukocyte Esterase Rfl Negative (Negative) AGUSTIN/UL Urine RBC 6-10 H (0-2) /hpf Urine WBC 0-5 (0-3) /hpf Ur Squamous Epith Cells Moderate (Few) /hpf Urine Bacteria 1+ H /hpf Urine Casts >20 Granular Casts Present (None) /lpf WBC Casts Present H (None) /lpf Urine Mucus Present /lpf POC Urine HCG, Qual Negative (Negative) Nasal MRSA (PCR) (NOT DETECTE) Urine Opiates Screen Negative (Negative) Urine Methadone Screen Negative (Negative) Ur Barbiturates Screen Negative (Negative) Ur Phencyclidine Scrn Negative (Negative) Ur Amphetamine Screen Negative (Negative) U Benzodiazepines Scrn Negative (Negative) Urine Cocaine Screen Negative (Negative) U Cannabinoids Screen Negative (Negative) Influenza A (RT-PCR) Negative (Negative) Influenza B (RT-PCR) Negative (Negative) RSV (RT-PCR) Negative (Negative) SARS-CoV-2 RNA (RT-PCR) Negative (Negative) 11/08/24 11/08/24 11/08/24 Range/Units 20:41 22:42 22:50 WBC (4.5-10.0) K/mm3 RBC (4.2-5.4) M/mm3 Hgb (12.0-15.0) g/dL Hct (37.0-47.0) % MCV (80-100) fl MCH (26-34) pg MCHC (32-36) g/dl RDW (11.5-14.5) % Plt Count (150-375) k/mm3 MPV (7.4-10.4) fl Immature Gran % (Auto) (0-0.5) % Neut % (Auto) (45.5-73.1) % Lymph % (Auto) (18.3-44.2) % Caroline % (Auto) (2.6-8.5) % Eos % (Auto) (0-4.4) % Baso % (Auto) (0.2-1.2) % Lymph # (Auto) (0.9-3.2) K/mm3 Caroline # (Auto) (0.1-0.6) K/mm3 Eos # (Auto) (0-0.3) K/mm3 Baso # (Auto) (0.0-0.1) K/mm3 Abs Immat Gran (auto) (0.00-0.031) K/mm3 Absolute Neuts (auto) (1.3-6.7) K/mm3 Absolute Nucleated RBC (0.0-0.012) K/mm3 Nucleated RBC % (0.0-0.2) % PT (11.1-14.7) Seconds INR APTT (22.3-36.8) Seconds D-Dimer (<0.48) ug/mL Sodium (137-145) mmol/L Potassium (3.4-5.0) mmol/L Chloride (98-107) mmol/L Carbon Dioxide (22-30) mmol/L Anion Gap (4-12) mmol/L BUN (7-17) mg/dL Creatinine (0.7-1.0) mg/dL Estim Creat Clear Calc ml/min Estimated GFR (59 - ) Glucose (65-110) mg/dL Lactic Acid (0.7-2.0) mmol/L Calcium (8.4-10.2) mg/dL Total Bilirubin (0.2-1.3) mg/dL AST (14-36) U/L ALT (6-35) U/L Alkaline Phosphatase (38-126) U/L Troponin I 0.014 0.013 (0.000-0.034) ng/mL C-Reactive Protein (<1.0) mg/dL NT-Pro-B Natriuret Pep (19.9-100) pg/mL Total Protein (6.3-8.2) g/dL Albumin (3.5-5.1) g/dL Lipase (23-300) U/L Urine Color (Yellow) Urine Appearance (Clear) Urine pH (5.0-9.0) Ur Specific [place] (1.001-1.035) Urine Protein (Negative) mg/dL Urine Glucose (UA) (Negative) mg/dL Urine Ketones (Negative) mg/dL Ur Blood (Man) (Negative) Urine Nitrate (Negative) Urine Bilirubin (Negative) Urine Urobilinogen (<2.0) mg/dL Add Ur Microanalysis Leukocyte Esterase Rfl (Negative) AGUSTIN/UL Urine RBC (0-2) /hpf Urine WBC (0-3) /hpf Ur Squamous Epith Cells (Few) /hpf Urine Bacteria /hpf Urine Casts Granular Casts (None) /lpf WBC Casts (None) /lpf Urine Mucus /lpf POC Urine HCG, Qual (Negative) Nasal MRSA (PCR) Not detected (NOT DETECTE) Urine Opiates Screen (Negative) Urine Methadone Screen (Negative) Ur Barbiturates Screen (Negative) Ur Phencyclidine Scrn (Negative) Ur Amphetamine Screen (Negative) U Benzodiazepines Scrn (Negative) Urine Cocaine Screen (Negative) U Cannabinoids Screen (Negative) Influenza A (RT-PCR) (Negative) Influenza B (RT-PCR) (Negative) RSV (RT-PCR) (Negative) SARS-CoV-2 RNA (RT-PCR) (Negative) 11/09/24 Range/Units 06:16 WBC (4.5-10.0) K/mm3 RBC (4.2-5.4) M/mm3 Hgb (12.0-15.0) g/dL Hct (37.0-47.0) % MCV (80-100) fl MCH (26-34) pg MCHC (32-36) g/dl RDW (11.5-14.5) % Plt Count (150-375) k/mm3 MPV (7.4-10.4) fl Immature Gran % (Auto) (0-0.5) % Neut % (Auto) (45.5-73.1) % Lymph % (Auto) (18.3-44.2) % Caroline % (Auto) (2.6-8.5) % Eos % (Auto) (0-4.4) % Baso % (Auto) (0.2-1.2) % Lymph # (Auto) (0.9-3.2) K/mm3 Caroline # (Auto) (0.1-0.6) K/mm3 Eos # (Auto) (0-0.3) K/mm3 Baso # (Auto) (0.0-0.1) K/mm3 Abs Immat Gran (auto) (0.00-0.031) K/mm3 Absolute Neuts (auto) (1.3-6.7) K/mm3 Absolute Nucleated RBC (0.0-0.012) K/mm3 Nucleated RBC % (0.0-0.2) % PT (11.1-14.7) Seconds INR APTT (22.3-36.8) Seconds D-Dimer (<0.48) ug/mL Sodium (137-145) mmol/L Potassium (3.4-5.0) mmol/L Chloride (98-107) mmol/L Carbon Dioxide (22-30) mmol/L Anion Gap (4-12) mmol/L BUN (7-17) mg/dL Creatinine 0.94 (0.7-1.0) mg/dL Estim Creat Clear Calc 66 ml/min Estimated GFR > 60 (59 - ) Glucose (65-110) mg/dL Lactic Acid (0.7-2.0) mmol/L Calcium (8.4-10.2) mg/dL Total Bilirubin (0.2-1.3) mg/dL AST (14-36) U/L ALT (6-35) U/L Alkaline Phosphatase (38-126) U/L Troponin I (0.000-0.034) ng/mL C-Reactive Protein (<1.0) mg/dL NT-Pro-B Natriuret Pep (19.9-100) pg/mL Total Protein (6.3-8.2) g/dL Albumin (3.5-5.1) g/dL Lipase (23-300) U/L Urine Color (Yellow) Urine Appearance (Clear) Urine pH (5.0-9.0) Ur Specific [place] (1.001-1.035) Urine Protein (Negative) mg/dL Urine Glucose (UA) (Negative) mg/dL Urine Ketones (Negative) mg/dL Ur Blood (Man) (Negative) Urine Nitrate (Negative) Urine Bilirubin (Negative) Urine Urobilinogen (<2.0) mg/dL Add Ur Microanalysis Leukocyte Esterase Rfl (Negative) AGUSTIN/UL Urine RBC (0-2) /hpf Urine WBC (0-3) /hpf Ur Squamous Epith Cells (Few) /hpf Urine Bacteria /hpf Urine Casts Granular Casts (None) /lpf WBC Casts (None) /lpf Urine Mucus /lpf POC Urine HCG, Qual (Negative) Nasal MRSA (PCR) (NOT DETECTE) Urine Opiates Screen (Negative) Urine Methadone Screen (Negative) Ur Barbiturates Screen (Negative) Ur Phencyclidine Scrn (Negative) Ur Amphetamine Screen (Negative) U Benzodiazepines Scrn (Negative) Urine Cocaine Screen (Negative) U Cannabinoids Screen (Negative) Influenza A (RT-PCR) (Negative) Influenza B (RT-PCR) (Negative) RSV (RT-PCR) (Negative) SARS-CoV-2 RNA (RT-PCR) (Negative) <Melisa Bess MD - Last Filed: 11/09/24 18:15> ABG Data ABG results: 11/08/24 22:32 Puncture Site Left radial ABG pH 7.311 L ABG pCO2 28.4 L ABG pO2 65.0 L ABG PO2/FiO2 Ratio 0.96 ABG HCO3 14.0 L ABG O2 Saturation 91.4 L ABG O2 Content 17.1 ABG Base Excess -10.7 A-a Gradient 389.2 Oxyhemoglobin 90.5 Total Hemoglobin 13.4 O2 Delivery Device Non-rebreather mask O2 Liters/Min 12.0 FiO2 68 <Jovana Corrales APRN - Last Filed: 11/09/24 03:36> 11/08/24 22:32 Puncture Site Left radial ABG pH 7.311 L ABG pCO2 28.4 L ABG pO2 65.0 L ABG PO2/FiO2 Ratio 0.96 ABG HCO3 14.0 L ABG O2 Saturation 91.4 L ABG O2 Content 17.1 ABG Base Excess -10.7 A-a Gradient 389.2 Oxyhemoglobin 90.5 Total Hemoglobin 13.4 O2 Delivery Device Non-rebreather mask O2 Liters/Min 12.0 FiO2 68 <Joseph Rodriguez MD - Last Filed: 11/08/24 21:20> 11/08/24 22:32 Puncture Site Left radial ABG pH 7.311 L ABG pCO2 28.4 L ABG pO2 65.0 L ABG PO2/FiO2 Ratio 0.96 ABG HCO3 14.0 L ABG O2 Saturation 91.4 L ABG O2 Content 17.1 ABG Base Excess -10.7 A-a Gradient 389.2 Oxyhemoglobin 90.5 Total Hemoglobin 13.4 O2 Delivery Device Non-rebreather mask O2 Liters/Min 12.0 FiO2 68 <Melisa Bess MD - Last Filed: 11/09/24 18:15> Imaging Data Attestation: I personally reviewed and interpreted this imaging study as follows: < Jovana Corrales APRN - Last Filed: 11/09/24 03:36> My impression: CTA chest -motion degraded -no pulmonary embolism seen -left apical consolidation -recommend follow-up in 3 months -recommend echocardiogram to evaluate for pulmonary arterial hypertension CT abdomen/pelvis -IUD -possible diarrheal illness <Jovana Corrales APRN - Last Filed: 11/09/24 03:36> Radiologist's impression: Impressions Chest X-Ray 11/08/24 18:27 IMPRESSION: 1. Small left lower lobe pneumonia. Recommend follow-up x-rays after treatment. 2. Severe pulmonary arterial hypertension. <Jovana Corrales APRN - Last Filed: 11/09/24 03:36> Critical Care Time Critical Care Time Critical Care Time: Yes <Jovana Corrales APRN - Last Filed: 11/09/24 03:36> Total Critical Care Time: 75 <Jovana Corrales APRN - Last Filed: 11/09/24 03:36> Discharge Plan Discharge Clinical Impression: Pulmonary hypertension, Septic shock, Pneumonia <Jovana Corrales APRN - Last Filed: 11/09/24 03:36> Patient Disposition: Acute Care Hospital <Jovana Corrales APRN - Last Filed: 11/09/24 03:36> Condition: Serious <Jovana Corrales APRN - Last Filed: 11/09/24 03:36> Patient Language: Greenlandic <Jovana Corrales APRN - Last Filed: 11/09/24 03:36> Follow-up/Referrals: PHYSICIAN NOT ON STAFF,NONSTAFF [Primary Care Provider] <Jovana Corrales APRN - Last Filed: 11/09/24 03:36>
[2024-11-08] MEDS: ACETAMINOPHEN 500 MG TABLET 1000 MG PO (18:31)
[2024-11-08] MEDS: ONDANSETRON INJ 4 MG/2 ML VIAL IV PUSH (18:31)
[2024-11-08 18:44] LABS: Hematocrit 40.9 % (37.0-47.0); Hemoglobin 14.5 g/dL (12.0-15.0); Immature Granulocyte Percent A 0.7 % (0-0.5); Lymphocytes Absolute Auto 0.78 K/mm3 (0.9-3.2); Mean Corpuscular HGB Conc 35.5 g/dl (32-36); Mean Corpuscular Hemoglobin 30.9 pg (26-34); Mean Corpuscular Volume 87.0 fl (80-100); Nucleated Red Blood Cells Absolute Auto 0.000 K/mm3 (0.0-0.012); Nucleated Red Blood Cells Perc 0.0 % (0.0-0.2); Platelet Count Result 111 k/mm3 (150-375); Red Blood Count 4.70 M/mm3 (4.2-5.4); White Blood Count 19.7 K/mm3 (4.5-10.0)
[2024-11-08 18:56] LABS: INR 1.4; Partial Thromboplastin Time 37.0 Seconds (22.3-36.8); Prothrombin Time 16.8 Seconds (11.1-14.7)
[2024-11-08 19:01] LABS: Alanine Aminotransferase 14 U/L (6-35); Albumin Level 3.8 g/dL (3.5-5.1); Alkaline Phosphatase 73 U/L (38-126); Anion Gap 9 mmol/L (4-12); Aspartate Amino Transferase 16 U/L (14-36); Bilirubin,Total 1.9 mg/dL (0.2-1.3); Blood Urea Nitrogen 20 mg/dL (7-17); Calcium 8.5 mg/dL (8.4-10.2); Carbon Dioxide 14 mmol/L (22-30); Chloride 107 mmol/L (98-107); Estimated CRCL calculation 59 ml/min; Estimated Glomerular Filt Rate 57; Glucose 132 mg/dL (65-110); Lipase 152 U/L (23-300); Potassium 3.1 mmol/L (3.4-5.0); Sodium 130 mmol/L (137-145); Total Protein 7.3 g/dL (6.3-8.2)
[2024-11-08 19:12] LABS: NT Pro B Type Natriuretic Pept 3170 pg/mL (19.9-100); Troponin I 0.017 ng/mL (0.000-0.034)
[2024-11-08] MEDS: cefTRIAXone 1 GM in SODIUM CHLORIDE 0.9% IV 50 ML 100 ML IVPB (19:13)
[2024-11-08] MEDS: SODIUM CHLORIDE 0.9% IV 1,000 ML 999 ML IV CONT ×2 (19:14→19:54)
[2024-11-08 19:32] LABS: Add Urine Microscopic? YES; Appearance Urine Cloudy (Clear); Glucose Urine UA Trace mg/dL (Negative); Leukocyte Esterase Ur Negative LEU/UL (Negative); Need Manual Microscopic Reviewed; Nitrate Urine Negative (Negative); Non Pathogenic Casts >20; Specific Grav Ur 1.027 (1.001-1.035)
[2024-11-08] MEDS: AZITHROMYCIN IV 500 MG in SODIUM CHLORIDE 0.9% IV 250 ML IVPB (19:40)
[2024-11-08 19:49] LABS: BEDSIDEPREGUCG Negative (Negative)
[2024-11-08] MEDS: METOCLOPRAMIDE HCL INJ 10 MG/2 ML VIAL IV PUSH (19:57)
[2024-11-08 19:59] LABS: Influenza A QL RT-PCR Negative (Negative); Influenza B QL RT-PCR Negative (Negative); RSV RNA, RT-PCR Negative (Negative); SARS-CoV-2 RNA PCR Negative (Negative)
--- OUTSIDE RECORDS SUMMARY | 2024-11-08 20:00 | XMS_ITS | Patient Health Record ---
Author Organization [facility] Address [address] [place] [address] Care Team Providers Care Passenger Service Manager Name Role Phone Ryanne Thakkar Primary Care Provider Jesus Westbrook Unavailable [phone] Bety Martinez Unavailable [phone] Allergies Allergen (clinical drug ingredient) Drug/Non Drug Allergy documented on EMR Reaction Allergy Type Onset Date Status cyproheptadine Cyproheptadine Unknown Drug Allergy Active Reason For Referral No Information Medications Medication SIG (Take, Route, Frequency, Duration) Notes Start Date End Date Status Topamax 50 MG 1 tablet Orally Once a day; Duration: 30 day(s) for migraines Active Famotidine 20 MG 1 tablet at bedtime as needed Orally Once a day Active FLUoxetine HCl 40 MG 1 capsule Orally Once a day; Duration: 30 days Active Mirena IUD Active traZODone HCl 100 MG 1 tablet at bedtime as needed Orally Once a day; Duration: 30 days Active Melatonin 10 MG 1 capsule Orally nightly; Duration: 90 days As needed Active busPIRone HCl 15 MG TAKE 1 TABLET BY MOUTH TWICE A DAY; Duration: 30 Active FLUoxetine HCl 20 MG TAKE 1 CAPSULE BY MOUTH EVERY DAY; Duration: 30 days Active Mirtazapine 7.5 MG TAKE 1 TABLET BY MOUTH EVERY DAY AT BEDTIME FOR 30 DAYS; Duration: 30 Active hydrOXYzine HCl 25 MG two capsules Orally every 4 hours as needed for anxiety; Duration: 30 days Not-Taking Tadalafil 20 MG 2 tablet Orally daily; Duration: 30 day(s) Active SEROquel XR 300 MG 1 tablet at bedtime Orally Once a day; Duration: 30 day(s) 07/09/2021 Not-Taking guanFACINE HCl ER 1 MG 1 tablet Orally once a day; Duration: 30 days 10/16/2024 Active Folic Acid 1 MG 1 tablet Orally Once a day; Duration: 30 day(s) Active LaMICtal 25 MG two tablets at bedtime Orally Once a day; Duration: 30 days unsure of dose Not-Taking Multi Complete - as directed Orally Active Prozac 40 mg 2 tab Oral; Duration: 14 days unsure of dose Not-Taking Uptravi 1200 MCG 1 tablet Orally Twice a day; Duration: 30 day(s) Active Opsumit 10 MG 1 tablet Orally Once a day; Duration: 30 day(s) Active Cyclobenzaprine HCl 10 MG 1 tablet at bedtime as needed Orally Once a day for fibromyalgia Active Mirtazapine 7.5 MG 1 tablet at bedtime Orally Once a day; Duration: 30 days Active BuSpar 15 MG 1 tablet Orally twice a day; Duration: 30 days 10 mg BID Active Social History Sex Assigned At : Social History Observation Description Sex Assigned At Female Section Notes: 07/01/2021 LORazepam 12.0 3 1 MG NA Amilcar Hunter Md Smoking history--- Smokes cigs, about half PPD since age 16 Drug/alcohol use Substance Alcohol May 2021 rarely Marijuana 07/02/21 daily cocaine In HS never Heroin 06/08/21 Meth 07/02/21 daily LSD/PCP 06/07/21 Occasional use IV drugs One time years ago OTC/Rx drugs Melatonin prn, One A Day location- [facility] Current [place] location[place] Who lives at home? Client reports she currently lives at her mother's house with her daughter. Usually lives w but they are d/t her substance use. Siblings? Children? Client has an 18 yr old daughter who lives with her at her mother's house. Client has a 7 yr old son that she hasn't been allowed to see. He is currently living with his father. Relationships? good (2-3 words) Describe childhood- pretty good, a little tyler (physical/verbal/mental/sexual) Abuse/Trauma - My grandmother basically raised me. I spent most of my time with her. My parents when I was young. My dad didn't live with us but was a good dad. My mom was always working. She wasn't abusive or anything. She was just never there. Client reports her father committed suicide [facility] she was in [facility] in [place]. Client reports her grandmother years before that. It was hard losing her because she basically raised me. That caused a relapse. And then later my dad killed himself when I was in [facility]. I'm still not over it. Client reports she is currently from her . He always puts me down. Education- Client has her High School Diploma. Occupation/Job history- Client is disabled. Client reports she receives SSI, LINK benefits, and Medicaid. Hobbies/Interests- Client reports she enjoys camping, fishing, [employer], and going to the [employer]. Social Activities-- Yes Spiritual Affiliation- Goes to latter day w mom, Tuesday latter day class Probation/Legal trouble/?- Client has a pending charge in [facility] for Possession of Meth with the Intent to Deliver. Client reports this is her second time being charged with this. Client reports she previously served 2 yrs [facility] and was released off parole in 2020. 07/01/2021 LORazepam 12.0 3 1 MG NA Amilcar Hunter Md Smoking history--- Smokes cigs, about half PPD since age 16 Drug/alcohol use Substance Alcohol May 2021 rarely Marijuana 07/02/21 daily cocaine In HS never Heroin 06/08/21 Meth 07/02/21 daily LSD/PCP 06/07/21 Occasional use IV drugs One time years ago OTC/Rx drugs Melatonin prn, One A Day location- [facility] Current home location- [place] Who lives at home? Client reports she currently lives at her mother's house with her daughter. Usually lives w but they are d/t her substance use. Siblings? Children? Client has an 18 yr old daughter who lives with her at her mother's house. Client has a 7 yr old son that she hasn't been allowed to see. He is currently living with his father. Relationships? good (2-3 words) Describe childhood- pretty good, a little tyler (physical/verbal/mental/sexual) Abuse/Trauma - My grandmother basically raised me. I spent most of my time with her. My parents when I was young. My dad didn't live with us but was a good dad. My mom was always working. She wasn't abusive or anything. She was just never there. Client reports her father committed suicide while she was in [facility] in [place]. Client reports her grandmother years before that. It was hard losing her because she basically raised me. That caused a relapse. And then later my dad killed himself when I was in [facility]. I'm still not over it. Client reports she is currently from her . He always puts me down. Education- Client has her High School Diploma. Occupation/Job history- Client is disabled. Client reports she receives SSI, L[employer] benefits, and Medicaid. Hobbies/Interests- Client reports she enjoys camping, fishing, [employer] pool, and going to the [employer]. Social Activities-- Yes Spiritual Affiliation- Goes to latter day w mom, Tuesday latter day class Probation/Legal trouble/?- Client has a pending charge in [facility] for Possession of Meth with the Intent to Deliver. Client reports this is her second time being charged with this. Client reports she previously served 2 yrs [facility] and was released off parole in 2020. 07/01/2021 LORazepam 12.0 3 1 MG NA Amilcar Hunter Md Smoking history- - Smokes cigs, about half PPD since age 16 Drug/alcohol use Substance Alcohol May 2021 rarely Marijuana 07/02/21 daily cocaine In HS never Heroin 06/08/21 Meth 07/02/21 daily LSD/PCP 06/07/21 Occasional use IV drugs One time years ago OTC/Rx drugs Melatonin prn, One A Day location- [facility] [place] home location[place] Who lives at home? Client reports she currently lives at her mother's house with her daughter. Usually lives w but they are d/t her substance use. Siblings? Children? Client has an 18 yr old daughter who lives with her at her mother's house. Client has a 7 yr old son that she hasn't been allowed to see. He is currently living with his father. Relationships? good (2-3 words) Describe childhood- pretty good, a little tyler (physical/verbal/mental/sexual) Abuse/Trauma - My grandmother basically raised me. I spent most of my time with her. My parents when I was young. My dad didn't live with us but was a good dad. My mom was always working. She wasn't abusive or anything. She was just never there. Client reports her father committed suicide while she was in [facility] in [place]. Client reports her grandmother years before that. It was hard losing her because she basically raised me. That caused a relapse. And then later my dad killed himself when I was in [facility]. I'm still not over it. Client reports she is currently from her . He always puts me down. Education- Client has her High School Diploma. Occupation/Job history- Client is disabled. Client reports she receives SSI, L[employer] benefits, and Medicaid. Hobbies/Interests- Client reports she enjoys camping, fishing, shooting pool, and going to the [employer]. Social Activities- Yes Spiritual Affiliation- Goes to latter day w , Tuesday latter day class Probation/Legal trouble/?- Client has a pending charge in [facility] for Possession of Meth with the Intent to Deliver. Client reports this is her second time being charged with this. Client reports she previously served 2 yrs in [facility] and was released off parole in 2020. 07/01/2021 LORazepam 12.0 3 1 MG NA Amilcar Hunter Md Smoking history--- Smokes cigs, about half PPD since age 16 Drug/alcohol use Substance Alcohol May 2021 rarely Marijuana 07/02/21 daily cocaine In HS never Heroin 06/08/21 Meth 07/02/21 daily LSD/PCP 06/07/21 Occasional use IV drugs One time years ago OTC/Rx drugs Melatonin prn, One A Day location- [facility] [place] Who lives at home? Client reports she currently lives at her mother's house with her daughter. Usually lives w but they are d/t her substance use. Siblings? Children? Client has an 18 yr old daughter who lives with her at her mother's house. Client has a 7 yr old son that she hasn't been allowed to see. He is currently living with his father. Relationships? good (2-3 words) Describe childhood- pretty good, a little tyler (physical/verbal/mental/sexual) Abuse/Trauma - My grandmother basically raised me. I spent most of my time with her. My parents when I was young. My dad didn't live with us but was a good dad. My mom was always working. She wasn't abusive or anything. She was just never there. Client reports her father committed suicide while she was in [facility] in [place]. Client reports her grandmother years before that. It was hard losing her because she basically raised me. That caused a relapse. And then later my dad killed himself when I was in [facility]. I'm still not over it. Client reports she is currently from her . He always puts me down. Education- Client has her High School Diploma. Occupation/Job history- Client is disabled. Client reports she receives SSI, L[employer] benefits, and Medicaid. Hobbies/Interests- Client reports she enjoys camping, fishing, [employer] pool, and going to the [employer]. Social Activities-- Yes Spiritual Affiliation- Goes to latter day w , Tuesday latter day class Probation/Legal trouble/?- Client has a pending charge in [facility] for Possession of Meth with the Intent to Deliver. Client reports this is her second time being charged with this. Client reports she previously served 2 yrs in [facility] and was released off parole in 2020. 07/01/2021 LORazepam 12.0 3 1 MG Amilcar Diez Md Smoking history--- Smokes cigs, about half PPD since age 16 Drug/alcohol use Substance Alcohol May 2021 rarely Marijuana 07/02/21 daily cocaine In HS never Heroin 06/08/21 Meth 07/02/21 daily LSD/PCP 06/07/21 Occasional use IV drugs One time years ago OTC/Rx drugs Melatonin prn, One A Day location- [facility] Current home location[place] Who lives at home? Client reports she currently lives at her mother's house with her daughter. Usually lives w but they are d/t her substance use. Siblings? Children? Client has an 18 yr old daughter who lives with her at her mother's house. Client has a 7 yr old son that she hasn't been allowed to see. He is currently living with his father. Relationships? good (2-3 words) Describe childhood- pretty good, a little tyler (physical/verbal/mental/sexual) Abuse/Trauma - My grandmother basically raised me. I spent most of my time with her. My parents when I was young. My dad didn't live with us but was a good dad. My mom was always working. She wasn't abusive or anything. She was just never there. Client reports her father committed suicide while she was in [facility] in 2018. Client reports her grandmother years before that. It was hard losing her because she basically raised me. That caused a relapse. And then later my dad killed himself when I was in [facility]. I'm still not over it. Client reports she is currently from her . He always puts me down. Education- Client has her High School Diploma. Occupation/Job history- Client is disabled. Client reports she receives SSI, L[employer] benefits, and Medicaid. Hobbies/Interests- Client reports she enjoys camping, fishing, shooting pool, and going to the [employer]. Social Activities-- Yes Spiritual Affiliation- Goes to latter day w , Tuesday latter day class Probation/Legal trouble/?- Client has a pending charge in [facility] for Possession of Meth with the Intent to Deliver. Client reports this is her second time being charged with this. Client reports she previously served 2 yrs in [facility] and was released off parole in 2020. 07/01/2021 LORazepam 12.0 3 1 MG NA Amilcar Hunter Md Smoking history- - Smokes cigs, about half PPD since age 16 Drug/alcohol use Substance Alcohol May 2021 rarely Marijuana 07/02/21 daily cocaine In HS never Heroin 06/08/21 Meth 07/02/21 daily LSD/PCP 06/07/21 Occasional use IV drugs One time years ago OTC/Rx drugs Melatonin prn, One A Day location- [facility] Current home location- [place] Who lives at home? Client reports she currently lives at her mother's house with her daughter. Usually lives w but they are d/t her substance use. Siblings? Children? Client has an 18 yr old daughter who lives with her at her mother's house. Client has a 7 yr old son that she hasn't been allowed to see. He is currently living with his father. Relationships? good (2-3 words) Describe childhood- pretty good, a little tyler (physical/verbal/mental/sexual) Abuse/Trauma - My grandmother basically raised me. I spent most of my time with her. My parents when I was young. My dad didn't live with us but was a good dad. My mom was always working. She wasn't abusive or anything. She was just never there. Client reports her father committed suicide while she was in [facility] in [place]. Client reports her grandmother years before that. It was hard losing her because she basically raised me. That caused a relapse. And then later my dad killed himself when I was in [facility]. I'm still not over it. Client reports she is currently from her . He always puts me down. Education- Client has her High School Diploma. Occupation/Job history- Client is disabled. Client reports she receives SSI, LINK benefits, and Medicaid. Hobbies/Interests- Client reports she enjoys camping, fishing, [employer] pool, and going to the [employer]. Social Activities- Yes Spiritual Affiliation- Goes to latter day w , Tuesday latter day class Probation/Legal trouble/?- Client has a pending charge in [facility] for Possession of Meth with the Intent to Deliver. Client reports this is her second time being charged with this. Client reports she previously served 2 yrs in [facility] and was released off parole in 2020. 07/01/2021 LORazepam 12.0 3 1 MG NA Amilcar Hunter Md Smoking history- - Smokes cigs, about half PPD since age 16 Drug/alcohol use Substance Alcohol May 2021 rarely Marijuana 07/02/21 daily cocaine In HS never Heroin 06/08/21 Meth 07/02/21 daily LSD/PCP 06/07/21 Occasional use IV drugs One time years ago OTC/Rx drugs Melatonin prn, One A Day location- [facility] Current home location- [place] Who lives at home? Client reports she currently lives at her mother's house with her daughter. Usually lives w but they are d/t her substance use. Siblings? Children? Client has an 18 yr old daughter who lives with her at her mother's house. Client has a 7 yr old son that she hasn't been allowed to see. He is currently living with his father. Relationships? good (2-3 words) Describe childhood- pretty good, a little tyler (physical/verbal/mental/sexual) Abuse/Trauma - My grandmother basically raised me. I spent most of my time with her. My parents when I was young. My dad didn't live with us but was a good dad. My mom was always working. She wasn't abusive or anything. She was just never there. Client reports her father committed suicide while she was in [facility] in 2018. Client reports her grandmother years before that. It was hard losing her because she basically raised me. That caused a relapse. And then later my dad killed himself when I was in [facility]. I'm still not over it. Client reports she is currently from her . He always puts me down. Education- Client has her High School Diploma. Occupation/Job history- Client is disabled. Client reports she receives SSI, LINK benefits, and Medicaid. Hobbies/Interests- Client reports she enjoys camping, fishing, shooting pool, and going to the [employer]. Social Activities- Yes Spiritual Affiliation- Goes to latter day w , Tuesday latter day class Probation/Legal trouble/?- Client has a pending charge in [facility] for Possession of Meth with the Intent to Deliver. Client reports this is her second time being charged with this. Client reports she previously served 2 yrs in [facility] and was released off parole in 2020. 07/01/2021 LORazepam 12.0 3 1 MG NA Amilcar Hunter Md Smoking history- - Smokes cigs, about half PPD since age 16 Drug/alcohol use Substance Alcohol May 2021 rarely Marijuana 07/02/21 daily cocaine In HS never Heroin 06/08/21 Meth 07/02/21 daily LSD/PCP 06/07/21 Occasional use IV drugs One time years ago OTC/Rx drugs Melatonin prn, One A Day location- [facility] Current home location- [place] Who lives at home? Client reports she currently lives at her mother's house with her daughter. Usually lives w but they are d/t her substance use. Siblings? Children? Client has an 18 yr old daughter who lives with her at her mother's house. Client has a 7 yr old son that she hasn't been allowed to see. He is currently living with his father. Relationships? good (2-3 words) Describe childhood- pretty good, a little tyler (physical/verbal/mental/sexual) Abuse/Trauma - My grandmother basically raised me. I spent most of my time with her. My parents when I was young. My dad didn't live with us but was a good dad. My mom was always working. She wasn't abusive or anything. She was just never there. Client reports her father committed suicide while she was in [facility] in 2018. Client reports her grandmother years before that. It was hard losing her because she basically raised me. That caused a relapse. And then later my dad killed himself when I was in [facility]. I'm still not over it. Client reports she is currently from her . He always puts me down. Education- Client has her High School Diploma. Occupation/Job history- Client is disabled. Client reports she receives SSI, LINK benefits, and Medicaid. Hobbies/Interests- Client reports she enjoys camping, fishing, shooting pool, and going to the [employer]. Social Activities- Yes Spiritual Affiliation- Goes to latter day w , Tuesday latter day class Probation/Legal trouble/?- Client has a pending charge in [facility] for Possession of Meth with the Intent to Deliver. Client reports this is her second time being charged with this. Client reports she previously served 2 yrs in [facility] and was released off parole in 2020. 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) Active confirmed Problem Tobacco user (490870648) Nicotine dependence, unspecified, uncomplicated (F17.200) Active confirmed Problem Fibromyalgia (548228752) Fibromyalgia (M79.7) Active confirmed Problem Insomnia (357345246) Insomnia (G47.00) Active confirmed Problem Bipolar 1 disorder (321476901) Bipolar 1 disorder (F31.9) 11/10/19 22 Active confirmed Problem Attention deficit disorder (57430560) ADD (attention deficit disorder) (F90.0) Active confirmed Problem Generalized anxiety disorder (27849368) DIANNA (generalized anxiety disorder) (F41.1) Active confirmed Problem Cannabis abuse (74868813) Cannabis abuse (F12.10) Active confirmed Problem Stimulant dependence (435480189) 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) Active confirmed Problem Physical examination, complete (19419546) Physical exam (Z00.00) Active confirmed Problem Bipolar disorder (08423911) Bipolar 1 disorder, depressed (F31.9) Active confirmed Problem Gynecological examination normal (372862612547500 ) Well woman exam with routine gynecological exam (Z01.419) Active confirmed Vital Signs Height 68 in 07/18/2024 Weight 160 lbs 07/18/2024 BMI 24.33 kg/m2 07/18/2024 Encounters Encounter Location Date Provider Diagnosis [address] [address] 07/18/2024 Bety Martinez Bipolar 1 disorder, depressed F31.9 ; DIANNA (generalized anxiety disorder) F41.1 and Insomnia G47.[address] [address] 08/15/2024 Bety Martinez DIANNA (generalized anxiety disorder) F41.1 ; Bipolar 1 disorder, depressed F31.9 and Insomnia G47.[address] [address] 09/18/2024 Bety Martinez DIANNA (generalized anxiety disorder) F41.1 ; Bipolar 1 disorder, depressed F31.9 and Insomnia G47.[address] [address] 10/16/2024 Bety Martinez Bipolar 1 disorder, depressed F31.9 ; ADD (attention deficit disorder) F90.0 ; Insomnia G47.00 and DIANNA (generalized anxiety disorder) F41.[address] [address] 05/18/2024 Jesus Westbrook Assessments Encounter Date Diagnosis (ICD Code) Assessment Notes Treatment Notes Treatment Clinical Notes Section Notes 07/18/2024 DIANNA (generalized anxiety disorder) (ICD-10 - F41.1) 07/18/2024 Bipolar 1 disorder, depressed (ICD-10 - F31.9) 08/15/2024 DIANNA (generalized anxiety disorder) (ICD-10 - F41.1) 09/18/2024 DIANNA (generalized anxiety disorder) (ICD-10 - F41.1) 10/16/2024 ADD (attention deficit disorder) (ICD-10 - F90.0) 10/16/2024 Bipolar 1 disorder, depressed (ICD-10 - F31.9) 09/18/2024 Bipolar 1 disorder, depressed (ICD-10 - F31.9) 10/16/2024 Insomnia (ICD-10 - G47.00) 08/15/2024 Bipolar 1 disorder, depressed (ICD-10 - F31.9) 07/18/2024 Insomnia (ICD-10 - G47.00) 09/18/2024 Insomnia (ICD-10 - G47.00) 08/15/2024 Insomnia (ICD-10 - G47.00) 10/16/2024 DIANNA (generalized anxiety disorder) (ICD-10 - F41.1) Plan Of Treatment No Information Insurance Providers Payer Name Payer Address Payer Phone Subscriber Number Group Number Insured Name Patient Relationship to Insured Coverage Start Date [facility]age End Date [facility] Att[facility] Claims Department [address] [place] [address] [phone] [id number] Malu Roque Self - patient is the insured 2 [employer] Attn Claims Department [address] [place] [address] [phone] [id number] Malu Roque Self - patient is the insured 2 Medical (General) History Medical History History ICD Code anxiety substance abuse pulmonary hypertension migraines atrial septal defect fibromyalgia Surgical History Surgery Date(Month/Year) 2015 port placement and removal Hospitalization History Reason Date(Month/Year) [facility] for psychosis 4x in 2020 2020
--- OUTSIDE RECORDS SUMMARY | 2024-11-08 20:00 | XMS_ITS | Clinical Summary ---
Author Organization [facility] Address [address] [place] [id number] Care Team Providers Care Help Desk Team Leader Name Role Phone Unavailable Primary Care Provider [...]
[2024-11-08 20:07] LABS: CRP 30.7 mg/dL (<1.0)
[2024-11-08] MEDS: NOREPINEPHRINE 8 MG/D5W 250 ML 8 MG/250 ML BAG 9.38 MG IV CONT (20:44)
[2024-11-08] MEDS: MIDAZOLAM HCL (*CRX) 2 MG/2 ML VIAL (20:45)
--- NOTE | 2024-11-08 20:45 | PC.NURSE ---
ERP in room prepping for central line placement. 2mg versed given IV by verbal order of ERP. Norepi started at 4mcg.
[2024-11-08 20:48] LABS: Cannabinoid Screen Urine Negative (Negative)
--- NOTE | 2024-11-08 20:51 | PC.NURSE ---
Central line placed left subclavia. No complications noted.
--- NOTE | 2024-11-08 20:57 | PC.NURSE ---
Xray came to confirm central line placement. Central line was not in correct spot. ERP had to remove. Prepping for femoral placement. Norepi increased to 8mcg.
--- NOTE | 2024-11-08 21:09 | PC.NURSE ---
norepi increased to 10mcg
[2024-11-08] MEDS: VANCOMYCIN 1,750 MG/NS 500 ML 1,750 MG/500 ML BAG 250 MG IVPB (21:16)
[2024-11-08 21:56] LABS: MRSA (PCR) NOT DETECTED (NOT DETECTE)
[2024-11-08 22:41] LABS: Alveolar/Arterial O2 Gradient 389.2 mmHg; Fractional Inspired Oxygen 68 %; HCO3 ABG 14.0 mEq/l (22.0-26.0); Oxygen Content ABG 17.1 %vol (16.0-22.0); Oxygen Saturation ABG 91.4 % (95.0-100.0); PCO2 ABG 28.4 mmHg (35.0-45.0); PO2 ABG 65.0 mmHg (80.0-100.0); PO2 FiO2 Ratio Arterial Blood 0.96 %
[2024-11-08 22:47] LABS: Liters per Minute 12.0 LPM; Modified Allen's Test Pass; Site Drawn LEFT RADIAL
[2024-11-08] MEDS: KCL 40 MEQ/WATER 100 ML 100 ML 25 ML IVPB (22:57)
[2024-11-08 23:13] LABS: Troponin I 0.014 ng/mL (0.000-0.034)
[2024-11-08 23:28] LABS: Troponin I 0.013 ng/mL (0.000-0.034)
[2024-11-09] VITALS (58 sets, daily range): BP systolic 88–114; BP diastolic 53–82; PULSE 52–105; RESP 8–23; O2SAT 90–99
--- NOTE | 2024-11-09 00:55 | PC.NURSE ---
[facility] TRANSFER LINE CALLED FOR TRIAGE INFORMATION. STATES PT IS STILL ON WAITING LIST TO BE TRANSFER.
[2024-11-09 08:07] LABS: Estimated CRCL calculation 66 ml/min; Estimated Glomerular Filt Rate > 60
[2024-11-09] MEDS: NOREPINEPHRINE 8 MG/D5W 250 ML 8 MG/250 ML BAG 22.5 MG IV CONT (08:29)
--- NOTE | 2024-11-09 09:01 | PC.NURSE ---
[facility] Transfer Center called. [facility] pt received a bed on the CCU at [place]. Room number [id number]. Accepting Physician is Dr. Montoya. Report called to [place] and spoke with DENA Jain. [employer] arranging transport.
== END 2024-11-09 10:34 | disposition short-term general hospital (02) ==
PROVIDERS: Emergency Provider Registered Nurse
DX: A41.9 Sepsis, unspecified organism (principal); R65.21 Severe sepsis with septic shock; J18.9 Pneumonia, unspecified organism; I27.20 Pulmonary hypertension, unspecified; Z20.822 Contact with and (suspected) exposure to COVID-19; Q21.10 Atrial septal defect, unspecified; I45.10 Unspecified right bundle-branch block; R94.31 Abnormal electrocardiogram [ECG] [EKG]
CPT/HCPCS: 31500; 36415; 36556; 36600; 71046; 71275; 74177; 80053; 80307; 81001; 81025; 82565; 82805; 83605; 83690; 83880; 84484; 85018; 85025; 85380; 85610; 85730; 86140; 87040; 87637; 87641; 93005; 96365; 96366; 96367; 96375; 99291; A9270; C1751; J0456; J0696; J2250; J2405; J2765; J3373; J3480; J7030; J7050; Q9967